=== PATIENT | female | born 1955 | race Caucasian/White ===

== ENCOUNTER 2017-08-14 02:29 | Emergency (ER) | payer OTHER ==
[~2017-08-14] VITALS: Ht 160 cm; Wt 122.5 kg
[2017-08-14] MEDS ORDERED: CELEXA20 MG PO (02:38)
[2017-08-14] MEDS ORDERED: REQUIP 0.25 M0.25 M1 PO (02:39)
[2017-08-14] MEDS ORDERED: [UNRECOGNIZED DRUG - OTHER] (02:39)
[2017-08-14] MEDS ORDERED: NEXIUM40 MG PO (02:39)
[2017-08-14 02:48] LABS: URINE BILIRUBIN NEGATIVE (Negative); URINE BLOOD 3+ (Negative); URINE CLARITY CLEAR; URINE COLOR YELLOW; URINE GLUCOSE-RANDOM NEGATIVE (Negative); URINE KETONES NEGATIVE (Negative); URINE LEUKOCYTES-REFLEX NEGATIVE (Negative); URINE NITRITE-REFLEX NEGATIVE (Negative); URINE PROTEIN NEGATIVE (Negative); URINE UROBILINOGEN 0.2 E.U./dl (0.2-1.0)
[2017-08-14 02:56] LABS: ABSOLUTE BASOPHILS 0.1 thou/uL (0.0-0.2); ABSOLUTE EOSINOPHILS 0.2 thou/uL (0.0-0.7); ABSOLUTE LYMPHOCYTES 3.4 thou/uL (0.8-5.3); ABSOLUTE MONOCYTES 0.7 thou/uL (0.0-1.2); BASOPHILS 0.9 %; EOSINOPHILS 2.5 %; HEMATOCRIT 43.3 % (37.0-47.0); LYMPHOCYTES 36.2 %; MCH 26.9 pg (26.0-34.0); MCHC 32.4 g/dL (28.0-37.0); MCV 83.1 fL (80.0-100.0); MONOCYTES 7.7 %; MPV 8.8 fl. (7.2-11.1); NUCLEATED RBCS 0 /100WBC; PLATELET COUNT* 295 thou/uL (150-400); POLYS 52.7 %; RBC 5.21 mil/uL (4.20-5.00); WBC 9.4 thou/uL (4.0-11.0)
[2017-08-14 03:05] LABS: CREATININE 0.9 mg/dL (0.6-1.3); POTASSIUM 4.4 mmol/L (3.5-5.1)
[2017-08-14 03:05] LABS: BACTERIA-REFLEX 1-9 Few /HPF (None Seen); CASTS None Seen /LPF (None Seen); CRYSTALS None Seen /LPF (None Seen); MUCUS 0-3 Light strn/LPF (None Seen); SQUAMOUS 0-3 Few /LPF (0-3); URINE WBC-REFLEX None Seen /HPF (0-5)
[2017-08-14 03:10] LABS: ALBUMIN 3.5 g/dL (3.4-5.0); TOTAL BILIRUBIN 0.3 mg/dL (<0.1-1.0); TOTAL PROTEIN 7.1 g/dL (6.4-8.2)
[2017-08-14] MEDS ORDERED: NORCO 5-325 TA1 EACH PO (04:54)
[2017-08-14] MEDS ORDERED: KEFLEX500 M1 PO (04:54)
[2017-08-14] MEDS ORDERED: IBUPROFEN 800800 MG PO (04:54)
[2017-08-14 05:02] VITALS: BP 145/81
== END 2017-08-14 05:02 | disposition home or self-care (01) ==
LOC: M.ERS 02:29
PROVIDERS: Personal Emergency Response Attendant
DX: R31.9 Hematuria, unspecified (principal); Z88.8 Allergy status to other drugs, medicaments and biological substances

== ENCOUNTER 2018-05-19 06:56 | Inpatient (IN) | payer OTHER ==
[~2018-05-19] VITALS: Ht 152.4 cm; Wt 85.7 kg
--- NOTE | ~2018-05-19 | OP ---
[facility] [address] [place] [address] OPERATIVE REPORT Name: PRINCESS ESPINOZA Room: [address] IN M.R.#: [id number] Admission: 05/19/18 Attend Phys: Cathy Elmore MD Discharge: Date of : 53 Report #: [id number] THIS REPORT FOR: //name// CC: Cathy Norman DATE OF SERVICE: 05/19/2018 PREOPERATIVE DIAGNOSIS: Incarcerated umbilical hernia. POSTOPERATIVE DIAGNOSIS: Incarcerated umbilical hernia. OPERATIVE PROCEDURE: Repair of incarcerated umbilical hernia with suture repair 0 Prolene. ANESTHESIA: Laryngeal mask with 0.5% Marcaine infiltrated into the wound site. DESCRIPTION OF PROCEDURE: The patient was placed under laryngeal mask anesthesia. The abdomen was prepped and draped in a sterile fashion and timeout taken. Antibiotics administered. We began by infiltrating the infraumbilical crease with 0.5% Marcaine and a transverse incision was placed there. Skin flaps were raised and I dissected down to the infraumbilical stalk area and there was a fascial defect that could be appreciated with an incarcerated hernia sac present there. The hernia sac was dissected free and amputated and sent as a specimen and the defect edges were lifted up. The defect measured approximately 1.3-1.4 cm in diameter appropriate for suture repair. I then aligned and passed through the fascial defect. Four interrupted 0 Prolene sutures then approximated them and tied them securely closing the fascial defect and then infiltrated that repair with 0.5% Marcaine. The wound bed was then closed in the following fashion, buried 4-0 PDS sutures and Dermabond ending the operative procedure. ESTIMATED BLOOD LOSS: 1 mL. SPECIMEN: Hernia sac to pathology. The patient was taken off laryngeal mask anesthesia and returned to recovery in stable condition. By: 1627 [id number] Elmore MD /nt
[~2018-05-19 06:56] MED LIST: CELEXA20 MG PO; IBUPROFEN 800800 MG PO; KEFLEX500 M1 PO; NEXIUM40 MG PO; NORCO 5-325 TA1 EACH PO; REQUIP 0.25 M0.25 M1 PO; [UNRECOGNIZED DRUG - OTHER]
[2018-05-19 07:04] VITALS: BP 168/105
[2018-05-19] MEDS ORDERED: CYMBALTA20 MG PO (07:07)
[2018-05-19] MEDS ORDERED: LISINOPRIL10 MG PO (07:07)
[2018-05-19] MEDS ORDERED: NEXIUM40 MG PO (07:07)
[2018-05-19 08:04] LABS: ABSOLUTE EOSINOPHILS 0.1 thou/uL (0.0-0.7); ABSOLUTE LYMPHOCYTES 1.5 thou/uL (0.8-5.3); ABSOLUTE MONOCYTES 0.3 thou/uL (0.0-1.2); ABSOLUTE NEUTROPHILS 3.7 thou/uL (1.6-8.1); BASOPHILS 0.8 %; EOSINOPHILS 2.1 %; HEMATOCRIT 42.6 % (37.0-47.0); HEMOGLOBIN 14.1 gm/dL (12.0-15.0); MCH 29.6 pg (26.0-34.0); MCHC 33.2 g/dL (28.0-37.0); MCV 89.1 fL (80.0-100.0); MONOCYTES 6.2 %; MPV 9.4 fl. (7.2-11.1); NUCLEATED RBCS 0 /100WBC; PLATELET COUNT* 238 thou/uL (150-400); POLYS 64.9 %; RBC 4.78 mil/uL (4.20-5.00); RDW-CV 13.2 % (10.5-14.5); WBC 5.6 thou/uL (4.0-11.0)
[2018-05-19 08:11] LABS: ANION GAP 4 mmol/L (7-16); BUN 17 mg/dL (7-18); CALCIUM 8.9 mg/dL (8.5-10.1); CHLORIDE 105 mmol/L (98-107); CO2 32 mmol/L (21-32); CREATININE 0.9 mg/dL (0.6-1.3); GLUCOSE 108 mg/dL (70-99); POTASSIUM 3.8 mmol/L (3.5-5.1); SODIUM 141 mmol/L (136-145)
[2018-05-19 08:18] LABS: ALBUMIN 3.2 g/dL (3.4-5.0); ALKALINE PHOSPHATASE 95 U/L (46-116); LIPASE 103 U/L (73-393); SGOT 17 U/L (15-37); SGPT 25 U/L (30-65); TOTAL BILIRUBIN 0.4 mg/dL (<0.1-1.0); TOTAL PROTEIN 6.5 g/dL (6.4-8.2); TROPONIN-I LEVEL <0.06 ng/mL (<0.06)
[2018-05-19 08:25] LABS: URINE BILIRUBIN NEGATIVE (Negative); URINE BLOOD NEGATIVE (Negative); URINE CLARITY CLEAR; URINE COLOR YELLOW; URINE GLUCOSE-RANDOM NEGATIVE (Negative); URINE KETONES NEGATIVE (Negative); URINE LEUKOCYTES-REFLEX 1+ (Negative); URINE NITRITE-REFLEX NEGATIVE (Negative); URINE PROTEIN NEGATIVE (Negative); URINE SPECIFIC GRAVITY <= 1.005 (1.005-1.030); URINE UROBILINOGEN 0.2 E.U./dl (0.2-1.0)
[2018-05-19 08:37] LABS: BACTERIA-REFLEX 1-9 Few /HPF (None Seen); CASTS None Seen /LPF (None Seen); CRYSTALS None Seen /LPF (None Seen); MUCUS 0-3 Light strn/LPF (None Seen); SQUAMOUS 0-3 Few /LPF (0-3); URINE RBC 0-2 Rare /HPF (0-2); URINE WBC-REFLEX 6-15 Few /HPF (0-5)
[2018-05-19 10:59] VITALS: BP 129/77
[2018-05-19 11:35] VITALS: BP 143/86
--- NOTE | 2018-05-19 11:36 | EKG ---
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: Jose Manuel DUVAL : 1955 Requested By: Enrique Song Order Number: [id number] MD: Cooper Barboza Measurements Intervals [place] Rate: 73 P: -7 TN: 187 QRS: 3 QRSD: 81 T: 37 QT: 399 QTc: 440 Interpretive Statements Sinus rhythm Abnormal R-wave progression, early transition Compared to ECG 04/08/2016 11:02:43 No significant changes Electronically Signed On 05-19-2018 11:35:49 [employer] NET DEVELOPER by Cooper Barboza [email or web address] <ELECTRONICALLY SIGNED> By: Cooper Barboza MD, [facility] 05/19/18 1135 [phone] Cooper Barboza MD, [facility] /EPI
[2018-05-19 12:04] VITALS: BP 143/86
--- NOTE | 2018-05-19 13:56 | NUR ---
PT ADMITTED TO UNIT, ALERT AND ORIENTED X4. PT IS ON RA. PULSES 2+. PT IS SCHEDULED FOR SURGERY TODAY AT 1430. PT IS NPO. PT IS STEADY WHILE AMBULATING. FALL RISK PRECAUTIONS IN PLACE. WILL CONTINUE TO MONITOR.
[2018-05-19 13:58] VITALS: BP 143/86
--- NOTE | 2018-05-19 18:55 | NUR ---
PT REMAINED ALERT AND ORIENTED THIS SHIFT. PT IS ON 3 LITERS O2. PT WENT DOWN FOR INCARCERATED HERNIA REPAIR. PT CAN BE DISCHARGE ONCE TOLERATING CLEAR LIQUID DIET, ON ROOM AIR, AND PAIN CONTROLLED. PT RETURNED, TOLERATING CLEAR LIQUID DIET CURRENTLY. FALL RISK PRECAUTIONS IN PLACE. HOURLY ROUNDING COMPLETED. WILL CONTINUE TO MONITOR.
[2018-05-19 20:00] VITALS: BP 144/72
[2018-05-20] VITALS: BP 118/77
--- NOTE | 2018-05-20 00:30 | NUR ---
INITAL ASSESMENT COMPLETED AT 1999. PT PLEASANT AND COOPERATIVE. PT GIVEN PRN OXYCODONE FOR PAIN CONTROL POST OPERATIVE LAPROSCOPIC HERNIA REPAIR. PT TOLERATING PO FOOD AND FLUIDS WITHOUT DIFFICULTY. NO NAUSEA OR VOMITING NOTED. CALL LIGHT IN REACH, PT USING APPROPRIATELY.
[2018-05-20 04:00] VITALS: BP 106/66
[2018-05-20 09:45] VITALS: BP 112/70
[2018-05-20 10:38] VITALS: BP 112/70
[2018-05-20] MEDS ORDERED: NORCO 5-325 TA1 EACH PO (10:49)
--- NOTE | 2018-05-20 11:56 | NUR ---
ASSUMED CARE OF PATIENT AFTER MORNING REPORT AT APPROX 0720. ALERT AND ORIENTED X4. ASSESSMENT COMPLETED AND CHARTED. VSS ON ROOM AIR. NO COMPLAINTS OF NAUSE AND SOA. PAIN AHS BEEN MINIMAL AND MANAGED WITH MEIDCATION. PATIENT TOLERATING DIET WELL AND READY TO DISCHARGE. DISCHARGED AT 1155 WITH ALL PERSONAL BELONGINGS, PRESCRIPTIONS AND DISCHARGE INFORMATION.
--- NOTE | 2018-05-22 12:05 | PATH ---
[address] [address] PATHOLOGY RPT PROCEDURE Name: PINKY ESPINOZA Room: [address] IN .R.#: [id number] Admission: 05/19/18 Date of : 53 Discharge: 05/20/18 Report #: [id number] Path Case #: [id number] [facility] Accession Number: [id number] . 01 Material submitted: . HERNIA SAC . 01 Clinical history: . Umbilical hernia . 02 Diagnosis: Hernia sac: - Benign mesothelial-lined fibromembranous/fibrofatty tissue. (REBECCA:vince; 05/21/2018) QMS/05/21/2018 . 02 Electronically signed: . Jose Carlos Leiva MD, Pathologist NPI- [id number] . 01 Gross description: . Received in formalin labeled "Pinky Espinoza, hernia sac," is a piece of fibromembranous tissue with attached fibroadipose tissue, measuring 2.7 x 1.9 x 1.4 cm in maximum dimensions. No nodules or lesions are identified. Liquor Merchant tissue submitted in cassette A1. (TSD; 05/19/2018) TOB/TOB . 02 Pathologist provided ICD-10: K42.9 . 02 CPT . 823244 Specimen Comment: A courtesy copy of this report has been sent to Specimen Comment: [phone], . Specimen Comment: Report sent to / DR BESS Specimen Comment: A duplicate report has been generated due to demographic updates. Performed at: [address] [facility] [address], [place], [place] [id number] MD Charlie Carlos MD Phone: [phone] Performed at: [address] [facility] [address] [address], [place], [place] [id number] MD Jose Carlos Leiva MD Phone: [phone]
== END 2018-05-20 11:55 | disposition home or self-care (01) | DRG 354 ==
LOC: M.ERS 06:56 → M.ORTHSURG 10:41 → M.TBA-ER 10:41 → M.ORTHSURG 10:59
PROVIDERS: Family Medicine; ADMIT Surgery
PROC: 0WQF0ZZ Repair Abdominal Wall, Open Approach (ICD-10-PCS; principal; 2018-05-19)
DX: K42.0 Umbilical hernia with obstruction, without gangrene (principal); N39.0 Urinary tract infection, site not specified; F41.9 Anxiety disorder, unspecified; F32.9 Major depressive disorder, single episode, unspecified; Z79.899 Other long term (current) drug therapy; Z88.8 Allergy status to other drugs, medicaments and biological substances

== ENCOUNTER 2019-03-25 12:29 | Emergency (ER) | payer OTHER ==
[~2019-03-25] VITALS: Ht 162.6 cm; Wt 79.4 kg
[~2019-03-25 12:29] MED LIST changes: +CYMBALTA20 MG PO; +LISINOPRIL10 MG PO
[2019-03-25] MEDS ORDERED: MOBIC15 MG PO (14:03)
[2019-03-25] MEDS ORDERED: HYDROCODON-ACE1 EAC7 PO (14:03)
[2019-03-25 14:21] VITALS: BP 148/92
== END 2019-03-25 14:22 | disposition home or self-care (01) ==
LOC: M.ERS 12:29
DX: S42.001A Fracture of unspecified part of right clavicle, initial encounter for closed fracture (principal); F41.9 Anxiety disorder, unspecified; F32.9 Major depressive disorder, single episode, unspecified; Z85.3 Personal history of malignant neoplasm of breast; Z87.442 Personal history of urinary calculi; Z88.8 Allergy status to other drugs, medicaments and biological substances; V89.2XXA Person injured in unspecified motor-vehicle accident, traffic, initial encounter; Y93.89 Activity, other specified; Y92.89 Other specified places as the place of occurrence of the external cause; Y99.8 Other external cause status

== ENCOUNTER 2020-01-08 21:00 | Inpatient (IN) | payer MEDICARE ==
[~2020-01-08] VITALS: Ht 162.6 cm; Wt 86.2 kg
[2020-01-08 00:30] VITALS: BP 166/87
[~2020-01-08 21:00] MED LIST changes: +HYDROCODON-ACE1 EAC7 PO; +MOBIC15 MG PO
[2020-01-08 21:07] VITALS: BP 167/97
[2020-01-08] MEDS ORDERED: ATIVAN0.5 M1 PO (21:10)
[2020-01-08] MEDS ORDERED: CHILDREN'S ASPI81 M1 PO (21:10)
[2020-01-08] MEDS ORDERED: AROMASIN25 MG PO (21:10)
[2020-01-08 21:24] LABS: ABSOLUTE EOSINOPHILS 0.1 thou/uL (0.0-0.7); ABSOLUTE LYMPHOCYTES 1.6 thou/uL (0.8-5.3); ABSOLUTE MONOCYTES 0.6 thou/uL (0.0-1.2); ABSOLUTE NEUTROPHILS 8.4 thou/uL (1.6-8.1); BASOPHILS 0.5 %; EOSINOPHILS 0.7 %; HEMATOCRIT 44.1 % (37.0-47.0); HEMOGLOBIN 14.8 gm/dL (12.0-15.0); LYMPHOCYTES 15.3 %; MCH 28.9 pg (26.0-34.0); MCHC 33.4 g/dL (28.0-37.0); MCV 86.4 fL (80.0-100.0); MONOCYTES 5.2 %; MPV 8.6 fl. (7.2-11.1); NUCLEATED RBCS 0 /100WBC; PLATELET COUNT* 355 thou/uL (150-400); POLYS 78.3 %; RBC 5.11 mil/uL (4.20-5.00); WBC 10.7 thou/uL (4.0-11.0)
[2020-01-08 21:33] LABS: URINE BLOOD 3+ (Negative); URINE CLARITY CLEAR; URINE COLOR YELLOW; URINE GLUCOSE-RANDOM NEGATIVE (Negative); URINE KETONES NEGATIVE (Negative); URINE LEUKOCYTES-REFLEX NEGATIVE (Negative); URINE NITRITE-REFLEX NEGATIVE (Negative); URINE PROTEIN TRACE (Negative); URINE SPECIFIC GRAVITY >= 1.030 (1.005-1.030)
[2020-01-08 21:34] LABS: CALCIUM 8.4 mg/dL (8.5-10.1); CREATININE 0.9 mg/dL (0.6-1.3); POTASSIUM 4.5 mmol/L (3.5-5.1)
[2020-01-08 21:35] LABS: PROTIME 9.9 Seconds (9.20-11.50)
[2020-01-08 21:35] LABS: URINE BILIRUBIN 2+ (Negative)
[2020-01-08 21:36] LABS: ICTOTEST (BILI CONFIRMATORY) Positive (Negative)
[2020-01-08 21:50] LABS: CASTS None Seen /LPF (None Seen); SQUAMOUS 0-3 Few /LPF (0-3)
[2020-01-08 21:51] LABS: BACTERIA-REFLEX 1-9 Few /HPF (None Seen); CRYSTALS None Seen /LPF (None Seen); URINE RBC 3-10 Few /HPF (0-2); URINE WBC-REFLEX None Seen /HPF (0-5)
[2020-01-08 21:51] LABS: ALBUMIN 3.7 g/dL (3.4-5.0); MAGNESIUM 2.1 mg/dL (1.8-2.4); TOTAL BILIRUBIN 1.6 mg/dL (<0.1-1.0); TOTAL PROTEIN 7.7 g/dL (6.4-8.2)
[2020-01-08 23:42] VITALS: BP 138/70
[2020-01-09 04:00] VITALS: BP 135/78
[2020-01-09 08:46] LABS: ABSOLUTE MONOCYTES 0.9 thou/uL (0.0-1.2); ABSOLUTE NEUTROPHILS 11.1 thou/uL (1.6-8.1); BASOPHILS 0.3 %; EOSINOPHILS 0.2 %; HEMATOCRIT 40.3 % (37.0-47.0); HEMOGLOBIN 13.7 gm/dL (12.0-15.0); LYMPHOCYTES 7.6 %; MCH 28.7 pg (26.0-34.0); MCHC 34.1 g/dL (28.0-37.0); MCV 84.2 fL (80.0-100.0); MONOCYTES 6.9 %; NUCLEATED RBCS 0 /100WBC; RBC 4.78 mil/uL (4.20-5.00); RDW-CV 13.2 % (10.5-14.5); WBC 13.1 thou/uL (4.0-11.0)
[2020-01-09 08:49] LABS: PLATELET COUNT* 279 thou/uL (150-400)
[2020-01-09 08:55] LABS: POTASSIUM 4.6 mmol/L (3.5-5.1)
[2020-01-09 09:00] VITALS: BP 132/76
[2020-01-09 09:00] LABS: ALBUMIN 3.2 g/dL (3.4-5.0); TOTAL BILIRUBIN 3.7 mg/dL (<0.1-1.0); TOTAL PROTEIN 6.6 g/dL (6.4-8.2)
[2020-01-09 20:00] VITALS: BP 98/56
[2020-01-10] VITALS: BP 100/56
[2020-01-10 03:58] VITALS: BP 109/64
[2020-01-10 05:48] LABS: ABSOLUTE MONOCYTES 0.5 thou/uL (0.0-1.2); BASOPHILS 0.1 %; EOSINOPHILS 0.2 %; HEMATOCRIT 36.7 % (37.0-47.0); HEMOGLOBIN 12.3 gm/dL (12.0-15.0); MCH 28.9 pg (26.0-34.0); MCHC 33.6 g/dL (28.0-37.0); MONOCYTES 5.9 %; MPV 7.9 fl. (7.2-11.1); NUCLEATED RBCS 0 /100WBC; PLATELET COUNT* 243 thou/uL (150-400); POLYS 81.8 %; RBC 4.26 mil/uL (4.20-5.00); RDW-CV 13.2 % (10.5-14.5); WBC 8.5 thou/uL (4.0-11.0)
[2020-01-10 06:02] LABS: ALBUMIN 2.7 g/dL (3.4-5.0); CALCIUM 8.1 mg/dL (8.5-10.1); POTASSIUM 4.2 mmol/L (3.5-5.1); TOTAL BILIRUBIN 3.6 mg/dL (<0.1-1.0); TOTAL PROTEIN 6.2 g/dL (6.4-8.2)
[2020-01-10 07:01] LABS: ESR (SEDRATE) 35 mm/hr (0-30)
[2020-01-10 07:15] VITALS: BP 113/72
--- NOTE | 2020-01-10 10:38 | EKG ---
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1955 Requested By: Cathy Manzo Order Number: [id number] MD: Roe Rodriges Measurements Intervals [place] Rate: 90 P: 28 [place]: 182 QRS: -6 QRSD: 85 T: 19 QT: 378 QTc: 463 Interpretive Statements Sinus rhythm Abnormal R-wave progression, early transition Borderline T abnormalities, inferior leads Baseline wander in lead(s) II,III,aVR,aVL,aVF,V2,V6 Compared to ECG 05/19/2018 07:52:37 no change Electronically Signed On 01-10-2020 10:38:23 CDT by Roe Rodriges [email or web address] <ELECTRONICALLY SIGNED> By: Roe Rodriges MD, [facility] 01/10/20 1038 18 18 Roe Rodriges MD, [facility] /EPI
[2020-01-10 15:25] VITALS: BP 113/72
[2020-01-10 15:36] LABS: % SATURATION 11 % (20-39); IRON 36 ug/dL (50-175)
[2020-01-10 16:18] VITALS: BP 102/66
[2020-01-10 20:00] VITALS: BP 127/69
[2020-01-11 04:09] LABS: HEMATOCRIT 34.2 % (37.0-47.0); HEMOGLOBIN 11.7 gm/dL (12.0-15.0); MCH 29.3 pg (26.0-34.0); MCHC 34.1 g/dL (28.0-37.0); MCV 85.9 fL (80.0-100.0); MPV 8.2 fl. (7.2-11.1); RBC 3.99 mil/uL (4.20-5.00); RDW-CV 13.3 % (10.5-14.5); WBC 6.4 thou/uL (4.0-11.0)
[2020-01-11 04:27] LABS: ALBUMIN 2.6 g/dL (3.4-5.0); CALCIUM 7.9 mg/dL (8.5-10.1); CREATININE 0.9 mg/dL (0.6-1.3); PHOSPHORUS* 2.6 mg/dL (2.5-4.9); POTASSIUM 3.8 mmol/L (3.5-5.1); PREALBUMIN 15.3 mg/dL (18.0-35.7); TOTAL BILIRUBIN 1.1 mg/dL (<0.1-1.0); TOTAL PROTEIN 5.9 g/dL (6.4-8.2)
[2020-01-11 07:00] VITALS: BP 153/113
[2020-01-11 08:05] VITALS: BP 113/72
[2020-01-11] MEDS ORDERED: AUGMENTIN 875-1 EACH PO (08:34)
[2020-01-11 08:36] VITALS: BP 113/72
== END 2020-01-11 11:00 | disposition home or self-care (01) | DRG 444 ==
LOC: M.ERS 21:00 → M.2W 23:06 → M.ORTHSURG 23:06 → M.TBA-ER 23:06 → M.2W 01-09 00:42 → M.ORTHSURG 01-09 10:20
PROVIDERS: Emergency Medicine; Internal Medicine; Internal Medicine Gastroenterology; Surgery; ADMIT Internal Medicine; ATTEND Internal Medicine
PROC: 0DJ08ZZ Inspection of Upper Intestinal Tract, Via Natural or Artificial Opening Endoscopic (ICD-10-PCS; principal; 2020-01-09)
PROC: BF131ZZ Fluoroscopy of Gallbladder and Bile Ducts using Low Osmolar Contrast (ICD-10-PCS; principal; 2020-01-09)
PROC: 0FC98ZZ Extirpation of Matter from Common Bile Duct, Via Natural or Artificial Opening Endoscopic (ICD-10-PCS; principal; 2020-01-09)
PROC: 0F798DZ Dilation of Common Bile Duct with Intraluminal Device, Via Natural or Artificial Opening Endoscopic (ICD-10-PCS; principal; 2020-01-09)
DX: K80.41 Calculus of bile duct with cholecystitis, unspecified, with obstruction (principal); K85.10 Biliary acute pancreatitis without necrosis or infection; R65.11 Systemic inflammatory response syndrome (SIRS) of non-infectious origin with acute organ dysfunction; E66.9 Obesity, unspecified; F32.9 Major depressive disorder, single episode, unspecified; F41.9 Anxiety disorder, unspecified; K25.9 Gastric ulcer, unspecified as acute or chronic, without hemorrhage or perforation; K21.9 Gastro-esophageal reflux disease without esophagitis; Z96.653 Presence of artificial knee joint, bilateral; I10 Essential (primary) hypertension; K44.9 Diaphragmatic hernia without obstruction or gangrene; Z90.49 Acquired absence of other specified parts of digestive tract; Z90.13 Acquired absence of bilateral breasts and nipples; Z90.710 Acquired absence of both cervix and uterus; Z85.3 Personal history of malignant neoplasm of breast; Z79.82 Long term (current) use of aspirin; Z79.899 Other long term (current) drug therapy; Z88.8 Allergy status to other drugs, medicaments and biological substances; Z68.32 Body mass index [BMI] 32.0-32.9, adult

== ENCOUNTER → 2020-02-01 | Outpatient (CLI) | payer MEDICARE ==
[~2020-02-01] MED LIST changes: +AROMASIN25 MG PO; +ATIVAN0.5 M1 PO; +AUGMENTIN 875-1 EACH PO; +CHILDREN'S ASPI81 M1 PO
== END ==
LOC: M.LAB 15:28
PROVIDERS: ATTEND Surgery
DX: Z01.812 Encounter for preprocedural laboratory examination (principal); Z20.828 Contact with and (suspected) exposure to other viral communicable diseases

== ENCOUNTER → 2020-04-04 | Day surgery (SDC) | payer MEDICARE ==
[~2020-04-04] MED LIST changes: +ATORVASTATIN CA10 MG PO; +DULOXETINE HCL60 MG PO; +ROPINIROLE HCL2 MG PO
--- NOTE | ~2020-04-04 | PROC ---
[facility] [address] [place] [address] PROCEDURE REPORT Name: PRINCESS ESPINOZA Room: [facility].#: [id number] Admission: 04/04/20 Attend Phys: Hugo Rivas DO Discharge: Date of : 53 Report #: [id number] THIS REPORT FOR: //name// cc: Shawn Norman Vincent R. DO ~ For GI report, please see the Provation report in Perceptive 7 content. By: [facility]5Medical Records Staff CARMEN /LINDY
[2020-04-04 09:25] LABS: HEMOGLOBIN 11.5 gm/dL (12.0-15.0); MCH 24.8 pg (26.0-34.0); MCV 77.7 fL (80.0-100.0); RBC 4.63 mil/uL (4.20-5.00); RDW-CV 13.9 % (10.5-14.5); WBC 4.7 thou/uL (4.0-11.0)
[2020-04-04 09:31] LABS: CALCIUM 8.7 mg/dL (8.5-10.1); CREATININE 0.8 mg/dL (0.6-1.3); POTASSIUM 4.2 mmol/L (3.5-5.1)
[2020-04-04 10:59] LABS: ALBUMIN 3.4 g/dL (3.4-5.0); DIRECT BILIRUBIN 0.1 mg/dL (<0.1-0.3); TOTAL BILIRUBIN 0.4 mg/dL (<0.1-1.0); TOTAL PROTEIN 7.1 g/dL (6.4-8.2)
== END | disposition home or self-care (01) ==
LOC: M.SUR 08:39
PROVIDERS: ATTEND Internal Medicine Gastroenterology
DX: Z46.59 Encounter for fitting and adjustment of other gastrointestinal appliance and device (principal); K83.1 Obstruction of bile duct; Z79.899 Other long term (current) drug therapy; Z98.890 Other specified postprocedural states

== ENCOUNTER → 2020-10-31 | Outpatient (CLI) | payer MEDICARE | LOC: M.CT 07:08 | PROVIDERS: ATTEND Internal Medicine | DX: K44.9 Diaphragmatic hernia without obstruction or gangrene (principal); N20.0 Calculus of kidney; M79.605 Pain in left leg; Z85.3 Personal history of malignant neoplasm of breast ==